=== PATIENT | female | born 1995 | race American Indian/Alaskan Native ===

== ENCOUNTER 2017-06-30 13:05 | Emergency (ER) | payer MEDICAID, OTHER ==
[2017-06-30 14:27] LABS: Urine Drugs of Abuse Note Disclamer
[2017-06-30 14:33] LABS: Hematocrit 40.3 % (30.3-42.9); Hemoglobin 13.6 gm/dl (10.1-14.3); Mean Corpuscular HGB Conc 34 % (30-34); Mean Corpuscular Hemoglobin 29 pg (28-32); Mean Corpuscular Volume 87 fl (79-97); Platelet Count 267 K/mm3 (140-440); Red Blood Count 4.65 M/mm3 (3.65-5.03); Red Cell Distribution Width 13.4 % (13.2-15.2)
[2017-06-30 14:45] LABS: Bacteria,Urine 1+ /HPF (Negative); Bilirubin,Urine NEG (Negative); Blood,Urine NEG (Negative); Ketones,Urine NEG (Negative); Leukocyte Esterase,Urine TR (Negative); Mucus,Urine FEW /HPF; Nitrite,Urine NEG (Negative); Protein,Urine <15 mg/dL mg/dL (Negative); Urobilinogen,Urine < 2.0 mg/dL (<2.0)
[2017-06-30 14:53] LABS: Anion Gap 18 mmol/L; BUN/Creatinine Ratio 10; Blood Urea Nitrogen 6 mg/dL (7-17); Carbon Dioxide 22 mmol/L (22-30); Chloride 100.3 mmol/L (98-107); Glucose 77 mg/dL (65-100); Potassium 3.7 mmol/L (3.6-5.0); Sodium 137 mmol/L (137-145)
[2017-06-30 15:07] LABS: Basophils % (Manual) 0 % (0.0-1.8); Blastocytes % (Manual) 0 %; Diff Status Complete; RBC Morphology Normal
[2017-06-30] MEDS ORDERED: MILK OF MAGNESIA PO PRN (15:56)
[2017-06-30] MEDS ORDERED: TYLENOL PO PRN (15:56)
[2017-06-30] MEDS ORDERED: ALUM-MAG HYDROX-SIMETH 200-200-20MG/5ML PO PRN (15:56)
--- NOTE | 2017-06-30 15:59 | Emergency Department Report ---
HPI - General Chief Complaint: Psych Time Seen by Provider: 06/30/17 14:25 - HPI HPI: The patient is 22-year-old female presents for evaluation of mental health. The patient reports constant severe sadness and depression for the past one week. The patient also admits to experiencing suicidal ideations. The patient denies fever, headache, unexplained weight loss or weight gain, heat or cold intolerance, skin, hair, or nail changes, neuro deficits, homicidal ideations, or auditory or visual hallucinations. ED Past Medical Hx - Past Medical History Hx Arthritis: Yes - Social History Smoking Status: Never Smoker Substance Use Type: Marijuana - Medications Home Medications: Home Medications Medication Instructions Recorded Confirmed Last Taken Type No Known Home Medications [No 06/30/17 06/30/17 Unknown History Reported Home Medications] ED Review of Systems ROS: Stated complaint: SUICIDAL THOUGHTS Other details as noted in HPI Constitutional: denies: fever ENT: denies: throat or neck pain Respiratory: denies: cough, shortness of breath Cardiovascular: denies: chest pain Endocrine: denies unexplained weight loss or gain Gastrointestinal: denies: abdominal pain, nausea Genitourinary: denies: dysuria Musculoskeletal: denies: leg swelling Skin: denies: rash Neurological: denies: headache Hematological/Lymphatic: denies: easy bleeding or easy bruising Psych: reports SI denies sadness or hopelessness Physical Exam - Physical Exam Vital Signs: Vital Signs 06/30/17 13:49 Temperature 99.3 F Pulse Rate 95 H Respiratory 18 Rate Blood Pressure 141/112 O2 Sat by Pulse 100 Oximetry Physical Exam: General: well-nourished, well-developed, no acute distress Head: Normocephalic, atraumatic Eyes: normal sclera ENT: Mucous membranes are pink and moist Neck: trachea midline, neck supple, No neck stiffness, no cervical adenopathy Respiratory: Breath sounds equal bilaterally, no wheezing, rales, or rhonchi Cardio: S1 and S2 present, no murmurs, rubs, gallops, capillary refill is brisk Abdomen: Normoactive bowel sounds, soft abdomen, no rigidity, no guarding or rebound tenderness Musc: No pitting edema Skin: No rash Neuro: no facial drooping, normal speech Psych: flat affect, patient delusional, poor insight, positive auditory hallucinations ED Course Vital Signs 06/30/17 13:49 Temperature 99.3 F Pulse Rate 95 H Respiratory 18 Rate Blood Pressure 141/112 O2 Sat by Pulse 100 Oximetry ED Medical Decision Making - Lab Data Result diagrams: 06/30/17 14:01 06/30/17 14:01 - Medical Decision Making The patient was seen and examined by myself. The patient is placed on a pvc monitor and continuous pulse ox. On initial evaluation, the patient was found to be in no distress. Labs are obtained. Lab results revealed positive marijuana and phencyclidine screens on UDS, and otherwise are grossly unremarkable. The patient is medically clear. Mental health is consulted. Mental health evaluates the patient and agrees that the patient is at risk of harm to self. A 1013 is completed. The patient will be admitted to a psychiatric facility once bed placement is obtained. Critical care attestation.: If time is entered above; I have spent that time in minutes in the direct care of this critically ill patient, excluding procedure time. ED Disposition Clinical Impression: Suicidal ideations Depression Qualifiers: Depression Type: unspecified Qualified Code(s): F32.9 - Major depressive disorder, single episode, unspecified Disposition: DC/TX-65 PSY HOSP/PSY UNIT Is pt being admited?: No Does the pt Need Aspirin: No Condition: Fair Referrals: SHASHANK GUAMAN MD [Primary Care Provider] - 3-5 Days Time of Disposition: 15:58
--- NOTE | 2017-07-01 14:37 | Consultation ---
History of Present Illness - Reason for Consult Consult date: 07/01/17 Reason for consult: Mental Health Evaluation Requesting physician: MAXWELL JACKSON - Chief Complaint Chief complaint: "I was mad" - History of Present Psychiatric Illness The patient is 22-year-old female presents for evaluation of mental health. Today patient is calm during the assessment. When asked about being suicidal she was evasive during the interview. She did state that she got into an argument with her partner and it got out of control. When she was asked about a plan for suicide, she denies having one. She was again asked about making a statement about being suicidal to anyone and she stated, "Yes." Also she stated , "I wanted to when I made the statement." She denies denies SI now. She denies a mental health dx when asked. She denies HI's and AVH's. She denies sleep disturbance and a poor appetite. She admit to smoking marijuana, but denies using PCP. She denies alcohol consumption (etoh). Medications and Allergies Allergies Allergy/AdvReac Type Severity Reaction Status Date / Time No Known Allergies Allergy Verified 06/30/17 13:57 Home Medications Medication Instructions Recorded Confirmed Last Taken Type No Known Home Medications [No 06/30/17 06/30/17 Unknown History Reported Home Medications] Active Meds: Active Medications Acetaminophen (Tylenol) 650 mg PO Q4HR PRN PRN Reason: Pain MILD(1-3)/Fever >100.5/HANCOCK Last Admin: 06/30/17 18:33 Dose: 650 mg Al Hydrox/Mg Hydrox/Simethicone (Alum-Mag Hydrox-Simeth [phone]/5ml) 30 ml PO Q4HR PRN PRN Reason: Indigestion Magnesium Hydroxide (Milk Of Magnesia) 30 ml PO Q12HR PRN PRN Reason: Constipation Past psychiatric history - Past Medical History Past Medical History: No medical history Past Surgical History: No surgical history - past Psychiatric treatment and history psychiatric treatment history: Denies a psy hx and a a fam psy hx. - Social History Social history: lives with family Mental Status Exam - Vital signs Last Vital Signs Temp 98.3 F 06/30/17 20:22 Pulse 87 06/30/17 20:22 Resp 16 07/01/17 04:08 BP 107/77 06/30/17 20:22 Pulse Ox 100 07/01/17 04:08 - Exam Narrative exam: MSE: Appearance: calm, but evasive Behavior: regular eye contact Speech: regular rate and tone Mood: "okay" Affect: congruent to mood Thought Process: circumstantial Thought Content: denies SI/HI's and AVH's Motor Activity: sitting up in bed Cognition: A/O x3 Insight: variable Judgment: variable Results Result Diagrams: 06/30/17 14:01 06/30/17 14:01 Abnormal lab results 06/30/17 06/30/17 Range/Units 14:01 14:01 Eosinophils % (Manual) 7.0 H (0.0-4.3) % Eosinophils # (Manual) 0.6 H (0.0-0.4) K/mm3 BUN 6 L (7-17) mg/dL Creatinine 0.6 L (0.7-1.2) mg/dL All other labs normal. Assessment and Plan Assessment and plan: Impression: Unspecified Mood DO. Substance Use DO (marijuana/PCP). Today patient is calm and cooperative during the assessment. DDx: Substance Induced Mood DO Recommendation/Plan: Continue 1013 with placement to [facility] today.
[2017-07-01 16:43] VITALS: BP 112/56
== END 2017-07-01 15:10 ==
LOC: ED 13:05 → EEVIPCON 13:05 → ED 07-01 15:10
DX: R45.851 Suicidal ideations (principal); F32.9 Major depressive disorder, single episode, unspecified; M19.90 Unspecified osteoarthritis, unspecified site; F12.10 Cannabis abuse, uncomplicated
CPT/HCPCS: 36415; 80048; 80307; 81001; 84703; 85007; 85025; 99285; G0480; 80320

== ENCOUNTER 2017-07-19 11:42 | Emergency (ER) | payer OTHER ==
[2017-07-19 12:02] VITALS: BP 110/70
[2017-07-19 14:43] LABS: Bacteria,Urine 1+ /HPF (Negative); Bilirubin,Urine NEG (Negative); Blood,Urine NEG (Negative); Ketones,Urine NEG (Negative); Leukocyte Esterase,Urine TR (Negative); Mucus,Urine FEW /HPF; Nitrite,Urine NEG (Negative); Protein,Urine <15 mg/dL mg/dL (Negative); Urobilinogen,Urine < 2.0 mg/dL (<2.0)
--- NOTE | 2017-07-19 15:06 | Emergency Department Report ---
ED Dysuria HPI - HPI Chief Complaint: Urogenital-Female Stated Complaint: WANTS TO BE CHECKED FOR STD'S Time Seen by Provider: 07/19/17 12:10 Duration: NO S/S Severity: Mild Symptoms: Dysuria: No, Frequency: No, Suprapubic Pain: No, Flank Pain: No, Fever : No, Hematuria: No, Abdominal Pain: No, Previous UTI's: No ED Review of Systems ROS: Stated complaint: WANTS TO BE CHECKED FOR STD'S Other details as noted in HPI Comment: NO S/S ED Past Medical Hx - Past Medical History Hx Arthritis: Yes - Social History Smoking Status: Never Smoker Substance Use Type: None - Medications Home Medications: Home Medications Medication Instructions Recorded Confirmed Last Taken Type No Known Home Medications [No 06/30/17 06/30/17 Unknown History Reported Home Medications] Dysuria Exam - Exam General: Vital signs noted. No distress. Alert and acting appropriately. Exam: Yes Moist Mucous Membranes, No CVA Tenderness, No Abdominal Tenderness, No Rigidity or Guarding Labs: Lab Results 07/19/17 Range/Units 14:20 Urine Color Yellow (Yellow) Urine Turbidity Clear (Clear) Urine pH 6.0 (5.0-7.0) Ur Specific [place] 1.021 (1.003-1.030) Urine Protein <15 mg/dl (Negative) mg/dL Urine Glucose (UA) Neg (Negative) mg/dL Urine Ketones Neg (Negative) mg/dL Urine Blood Neg (Negative) Urine Nitrite Neg (Negative) Urine Bilirubin Neg (Negative) Urine Urobilinogen < 2.0 (<2.0) mg/dL Ur Leukocyte Esterase Tr (Negative) Urine WBC (Auto) 2.0 (0.0-6.0) /HPF Urine RBC (Auto) 2.0 (0.0-6.0) /HPF U Epithel Cells (Auto) 1.0 (0-13.0) /HPF Urine Bacteria (Auto) 1+ (Negative) /HPF Urine Mucus Few /HPF Urine HCG, Qual Negative (Negative) ED Course Vital Signs 07/19/17 11:59 Temperature 98.4 F Pulse Rate 76 Respiratory 20 Rate Blood Pressure 110/70 O2 Sat by Pulse 98 Oximetry - Reevaluation(s) Reevaluation #1: 07/19/17 15:09 FEMALE HAVING SEX W FEMALE WHO ACCUSED HER OF GIVING HER CHLAMYDIA PT NEVER HAD SEX W MALE PT IS HAVING NO S/S GC URINE SENT. UA NOTED PREG NEG DC HOME FU WITH OBGYN ED Medical Decision Making - Medical Decision Making NO S/S - Differential Diagnosis CONCERN FOR STD Critical care attestation.: If time is entered above; I have spent that time in minutes in the direct care of this critically ill patient, excluding procedure time. ED Disposition Clinical Impression: Concern about STD in female without diagnosis Disposition: DC- TO HOME OR SELFCARE Is pt being admited?: No Does the pt Need Aspirin: No Condition: Stable Instructions: Safe Sex (ED) Additional Instructions: NO EVIDENCE OF INFECTION Referrals: PRIMARY CARE, [Primary Care Provider] - 3-5 Days JANNIE DAVID MD [Staff Physician] - 3-5 Days Time of Disposition: 15:05
== END 2017-07-19 15:12 | disposition home or self-care (01) ==
LOC: ED 11:42
DX: Z11.3 Encounter for screening for infections with a predominantly sexual mode of transmission (principal); M19.90 Unspecified osteoarthritis, unspecified site
CPT/HCPCS: 81001; 81025; 99283

== ENCOUNTER 2018-04-13 19:00 | Emergency (ER) | payer OTHER ==
--- NOTE | 2018-04-13 20:27 | Emergency Department Report ---
ED Psych HPI - General Chief Complaint: Psych Stated Complaint: MH Time Seen by Provider: 04/13/18 19:45 Source: EMS Mode of arrival: Ambulatory - History of Present Illness Initial Comments: Ms. Duenas is a 23 yo female with hx of asthma and Bipolar affective disorder who had feelings of depression today. Her 18 year old sister called 911 because she was concered about her sister's depression. EMS informed me that the patient told them that she ingested Zoloft and attempted to harm himself. She vehemently denies this accusation. Our EMS crew spoke with the ED physician in the ER medical services assistant direction. The physician requested the EMS crew bring her against her will. Mother is at the bedside. She believes the patient. She felt that the situation was a misunderstanding. Mother feels that patient is not at risk for self-harm. She has not harmed herself in the past. She has not had a previous suicide attempt. Mother states that patient told her of a traumatic personal event recently. Mother has been supportive. Mother believes that the patient did not make a statement that she wanted to hurt herself. MD Complaint: feels depressed -: Gradual, days(s) (4) Associated Psychiatric Symptoms: depression History of same: Yes Quality: constant Context: not taking psychiatric, significant life stressor - Related Data Home Medications Medication Instructions Recorded Confirmed Last Taken No Known Home Medications [No 06/30/17 06/30/17 Unknown Reported Home Medications] Allergies Allergy/AdvReac Type Severity Reaction Status Date / Time No Known Allergies Allergy Verified 06/30/17 13:57 ED Review of Systems ROS: Stated complaint: MH Other details as noted in HPI Comment: All other systems reviewed and negative Constitutional: denies: fever, malaise Respiratory: denies: cough Cardiovascular: denies: chest pain ED Past Medical Hx - Past Medical History Previous Medical History?: Yes Hx Arthritis: Yes Hx Psychiatric Treatment: Yes (Bipolar depression. No meds. Previous admission to [facility]) Hx Asthma: Yes - Surgical History Past Surgical History?: No - Social History Smoking Status: Never Smoker Substance Use Type: Marijuana - Medications Home Medications: Home Medications Medication Instructions Recorded Confirmed Last Taken Type No Known Home Medications [No 06/30/17 06/30/17 Unknown History Reported Home Medications] ED Physical Exam - General Limitations: No Limitations General appearance: alert, in no apparent distress - Head Head exam: Present: atraumatic, normocephalic - Eye Eye exam: Present: normal appearance - ENT ENT exam: Present: mucous membranes moist - Neck Neck exam: Present: normal inspection. Absent: tenderness, meningismus - Respiratory Respiratory exam: Present: normal lung sounds bilaterally. Absent: respiratory distress, wheezes, rales, rhonchi - Cardiovascular Cardiovascular Exam: Present: regular rate, normal rhythm. Absent: systolic murmur, diastolic murmur, rubs, gallop - GI/Abdominal GI/Abdominal exam: Present: soft, normal bowel sounds. Absent: distended, tenderness, guarding, rebound - Extremities Exam Extremities exam: Present: normal inspection - Back Exam Back exam: Present: normal inspection - Neurological Exam Neurological exam: Present: alert, oriented X3 - Psychiatric Psychiatric exam: Present: normal affect, normal mood. Absent: homicidal ideation, suicidal ideation - Skin Skin exam: Present: warm, dry, intact, normal color. Absent: rash ED Course Vital Signs 04/13/18 19:45 Temperature 98.7 F Pulse Rate 95 H Respiratory 18 Rate Blood Pressure 152/83 O2 Sat by Pulse 99 Oximetry ED Medical Decision Making - Medical Decision Making Ms. Duenas is 23 yo female with previous hx of depression, bipolar. I reviewed previous psychiatric evaluation by Dr. Caballero when patient was on 1013 on previous ED encounter for suicidal ideation. She was hospitalized at [facility]. Patient was given referral but have not followed up. Patient and mother feel that Pat will be safe at home. She denies SI HI. I have provided referral for mental health evaluation. I explained that patient must be evaluated by a physician in a case of depression and mental illness. Patient and mother were frustrated that patient was brought to ED against her will. Critical care attestation.: If time is entered above; I have spent that time in minutes in the direct care of this critically ill patient, excluding procedure time. ED Disposition Clinical Impression: Bipolar affective disorder Disposition: DC-01 TO HOME OR SELFCARE Is pt being admited?: No Does the pt Need Aspirin: No Condition: Stable Instructions: Depression (ED) [facility] Time of Disposition: 20:33
[2018-04-13 20:43] VITALS: BP 138/66
== END 2018-04-13 20:43 | disposition home or self-care (01) ==
LOC: ED 19:00
DX: F31.9 Bipolar disorder, unspecified (principal); J45.909 Unspecified asthma, uncomplicated; M19.90 Unspecified osteoarthritis, unspecified site
CPT/HCPCS: 99283

== ENCOUNTER 2018-09-26 15:40 | Emergency (ER) | payer OTHER ==
[2018-09-26 16:10] VITALS: BP 115/72
--- NOTE | 2018-09-26 16:13 | Emergency Department Report ---
Blank Doc - Documentation Documentation: 23 y o female presents to ED stating syncopal episode last night while cooking, she does not remember what happened, she was found on the floor by her girlfriend who is here with her. she states that she hit her head on the floor. Gf states she noticed blood from pt's ears She denies cp,sob,dizziness LMP: never This initial assessment diagnostic orders/clinical plan/treatment (s) is/Are subject change based on patient's health status, clinical progression and re-assessment by fellow clinical providers in the ED. Further treatment and work-up at subsequent clinical providers discretion. Patient/guardians urged not to elope from their condition may be serious if not clinically assessed and managed. Initial order include: labs ACC assessment
[2018-09-26 16:33] LABS: Basophils # (Auto) 0.1 K/mm3 (0.0-0.1); Basophils % (Auto) 0.8 % (0.0-1.8); Eosinophils # (Auto) 0.4 K/mm3 (0.0-0.4); Eosinophils % (Auto) 4.6 % (0.0-4.3); Hematocrit 38.8 % (30.3-42.9); Hemoglobin 13.1 gm/dl (10.1-14.3); Lymphocytes # (Auto) 2.8 K/mm3 (1.2-5.4); Mean Corpuscular HGB Conc 34 % (30-34); Mean Corpuscular Volume 87 fl (79-97); Monocytes # (Auto) 0.6 K/mm3 (0.0-0.8); Monocytes % (Auto) 7.5 % (0.0-7.3); Platelet Count 260 K/mm3 (140-440); Red Blood Count 4.46 M/mm3 (3.65-5.03); Red Cell Distribution Width 13.3 % (13.2-15.2)
[2018-09-26 16:44] LABS: BUN/Creatinine Ratio 13; Blood Urea Nitrogen 9 mg/dL (7-17); Calcium 9.2 mg/dL (8.4-10.2); Hemolysis Index 13
--- NOTE | 2018-09-26 17:39 | Emergency Department Report ---
HPI - General Chief Complaint: Syncope Time Seen by Provider: 09/26/18 16:07 - HPI HPI: 23-year-old AA female presents to the emergency department with complaint of right shoulder pain and a headache, as well as some tongue pain, after passing out at home yesterday afternoon while cooking. The patient's significant other found her on the ground with some convulsions or seizure-like activity and she was foaming at the mouth. She took a few minutes to return back to normal. The patient is awake and alert and says that she does not remember anything regarding this episode of passing out. She denies any past medical history. She has never had any previous seizures or episodes of passing out prior to this. No recent travel or sick contacts at home. She denies any tobacco or illicit drug use or abuse. She has not taken anything for her symptoms prior to presentation. ED Past Medical Hx - Past Medical History Previous Medical History?: Yes Hx Arthritis: Yes Hx Psychiatric Treatment: Yes (Bipolar depression. No meds. Previous admission to [facility]) Hx Asthma: Yes - Surgical History Past Surgical History?: No - Social History Smoking Status: Never Smoker Substance Use Type: Marijuana - Medications Home Medications: Home Medications Medication Instructions Recorded Confirmed Last Taken Type RX: Ibuprofen 600 mg PO Q8H PRN #20 tablet 09/26/18 Unknown Rx ED Review of Systems ROS: Stated complaint: PASSED OUT/MOUTH/BODY PAIN Other details as noted in HPI Comment: All other systems reviewed and negative Constitutional: denies: chills, fever Eyes: denies: eye pain, vision change ENT: denies: ear pain, throat pain Respiratory: denies: cough, shortness of breath Cardiovascular: syncope. denies: chest pain, palpitations Gastrointestinal: denies: nausea, vomiting Genitourinary: denies: dysuria, discharge Musculoskeletal: arthralgia. denies: back pain Skin: denies: rash, lesions Neurological: headache. denies: weakness, numbness, paresthesias Physical Exam - Physical Exam Vital Signs: Vital Signs 09/26/18 16:04 Temperature 98.2 F Pulse Rate 94 H Respiratory 18 Rate Blood Pressure 115/72 O2 Sat by Pulse 98 Oximetry Physical Exam: GENERAL: The patient is well-developed well-nourished. HEENT: Normocephalic. Atraumatic. Patient has moist mucous membranes. Oropharynx is clear. No drooling or trismus. The patient has some small abrasions seen to the right side of the tongue consistent with her biting her tongue. EYES: Extraocular motions are intact. Pupils are equal and reactive to light bilaterally. No nystagmus. NECK: Supple. Trachea is midline. CHEST/LUNGS: Clear to auscultation. There is no respiratory distress noted. HEART/CARDIOVASCULAR: Regular. There is no tachycardia. There is no obvious murmur. ABDOMEN: Abdomen is soft, nontender. Patient has normal bowel sounds. There is no abdominal distention. SKIN: Skin is warm and dry. NEURO: The patient is awake, alert, and oriented. The patient is cooperative. The patient has no focal neurologic deficits. The patient has normal speech. Cranial nerves II through XII grossly intact. MUSCULOSKELETAL: There is some tenderness to palpation to the right shoulder but no obvious deformity. Radial pulse +2 over 4 and capillary refill less than 2 seconds to the affected right upper extremity. ED Course Vital Signs 09/26/18 16:04 Temperature 98.2 F Pulse Rate 94 H Respiratory 18 Rate Blood Pressure 115/72 O2 Sat by Pulse 98 Oximetry ED Medical Decision Making - Lab Data Result diagrams: 09/26/18 16:18 09/26/18 16:18 - EKG Data -: EKG Interpreted by Me EKG shows normal: sinus rhythm, axis, intervals, QRS complexes, ST-T waves Rate: normal - EKG Data When compared to previous EKG there are: previous EKG unavailable Interpretation: normal EKG - Radiology Data Radiology results: report reviewed, image reviewed interpreted by me: X-ray of the right shoulder does not show any fracture, dislocation or any acute process. PROCEDURE: CT HEAD/BRAIN WO CON TECHNIQUE: Computerized tomography of the head was performed without contrast benjamin ivan. HISTORY: Syncope COMPARISONS: None . FINDINGS: Skull and scalp: Normal . Paranasal sinuses: Mucosal thickening in the maxillary and ethmoid sinuses is noted bilaterally. . Ventricles and subarachnoid spaces: Normal . Cerebrum: No evidence of hemorrhage, acute infarction or mass . Cerebellum and brainstem: No evidence of hemorrhage, acute infarction or mass . Vasculature: Normal . Other: None . ASPECTS: 10 IMPRESSION: No acute intracranial abnormality. Chronic sinusitis in the maxillary and ethmoid sinuses This document is electronically signed by Iona Payen MD., September 26 2018 06:04:02 PM ET Transcribed By: [facility] Dictated By: IONA PAYNE MD Electronically Authenticated By: IONA PAYNE MD Signed Date/Time: 09/26/18 180 - Medical Decision Making Patient presents to the emergency department with a syncopal episode yesterday with some seizure-like activity when it occurred. Now she still has a mild headache and some right shoulder pain. She is awake and alert and does not appear in any acute distress. She has no focal, motor or sensory deficits and her cranial nerves are intact. A CT scan of the head did not show any bleed, shift, mass, ischemia, or any other acute process. Patient's labs were unremarkable including CBC, BMP, LDH. X-ray of the right shoulder does not show any fracture, dislocation or any acute process. Patient was reevaluated multiple times of hours and has remained awake, alert and stable. She appears safe for discharge home at this time. Given that the patient had some witnessed seizure-like activity and what sounds like a short postictal period, it may have been that the patient had a seizure as the etiology of the syncope. It could also have been orthostatic hypotension, vasovagal. An EKG was done that does not show any ST elevation MN, dysrhythmia or ischemia. The patient has been given a referral for primary care, neurology and an orthopedist. She will return to the ER with any worsening of her symptoms or any acute distress. - Differential Diagnosis seizure, orthostatic hypotension, vasovagal, dysrhythmia, migraine Critical Care Time: No Critical care attestation.: If time is entered above; I have spent that time in minutes in the direct care of this critically ill patient, excluding procedure time. ED Disposition Clinical Impression: Seizure-like activity Syncope Qualifiers: Syncope type: unspecified Qualified Code(s): R55 - Syncope and collapse Right shoulder pain Qualifiers: Chronicity: acute Qualified Code(s): M25.511 - Pain in right shoulder Disposition: DC-01 TO HOME OR SELFCARE Is pt being admited?: No Condition: Stable Instructions: Syncope (ED) Additional Instructions: Please follow up with a primary care physician in the next few days. I'm giving you a referral for a local neurologist, Dr. Garcia, to follow up regarding the observed seizure-like activity. I am also giving you a referral for a local orthopedist, Dr. Peters, to follow up regarding her right shoulder pain. Return to the emergency Department with any worsening of your symptoms or any acute distress. Prescriptions: RX: Ibuprofen 600 mg PO Q8H PRN #20 tablet PRN Reason: Pain , Severe (7-10) Referrals: ANDREW PETERS MD [Staff Physician] - 3-5 Days KEVIN GARCIA MD [Staff Physician] - 3-5 Days JEANA FAY MD [Staff Physician] - 3-5 Days [facility] [Outside] - 3-5 Days Forms: Work/School Release Form(ED) Time of Disposition: 18:26
--- NOTE | 2018-09-26 18:06 | Cat Scan Report ---
PROCEDURE: CT HEAD/BRAIN WO CON TECHNIQUE: Computerized tomography of the head was performed without contrast material. HISTORY: Syncope COMPARISONS: None . FINDINGS: Skull and scalp: Normal . Paranasal sinuses: Mucosal thickening in the maxillary and ethmoid sinuses is noted bilaterally. . Ventricles and subarachnoid spaces: Normal . Cerebrum: No evidence of hemorrhage, acute infarction or mass . Cerebellum and brainstem: No evidence of hemorrhage, acute infarction or mass . Vasculature: Normal . Other: None . ASPECTS: 10 IMPRESSION: No acute intracranial abnormality. Chronic sinusitis in the maxillary and ethmoid sinuses This document is electronically signed by Iona Payne MD., September 26 2018 06:04:02 PM ET
--- NOTE | 2018-09-26 19:03 | XRay Report ---
PROCEDURE: XR SHOULDER 2+V RT HISTORY: right shoulder pain FINDINGS: AP views of the right shoulder were acquired in internal and external rotation as well as s capular Y view. These images demonstrate no fracture or malalignment of the right shoulder. The glenohumeral and acro miohumeral joints are normally located. IMPRESSION: No fracture is seen in the right shoulder This document is electronically signed by Huan Childers MD., September 26 2018 06:43:55 PM ET
== END 2018-09-26 18:37 | disposition home or self-care (01) ==
LOC: ED 15:40
DX: M25.511 Pain in right shoulder (principal); R55 Syncope and collapse; R51 Headache; M19.90 Unspecified osteoarthritis, unspecified site; R56.9 Unspecified convulsions; F31.9 Bipolar disorder, unspecified; F12.10 Cannabis abuse, uncomplicated
CPT/HCPCS: 36415; 70450; 80048; 83615; 84703; 85025; 93005; 93010

== ENCOUNTER 2019-01-11 18:58 | Emergency (ER) | payer OTHER ==
[2019-01-11 19:17] VITALS: BP 108/64
--- NOTE | 2019-01-11 19:43 | Event Note ---
ED Screening Note ED Screening Note: 24y/o female comes in left hip pain. Started having after a fall in November. This initial assessment/diagnostic orders/clinical plan/treatment(s) is/are subject to change based on patients health status, clinical progression and re- assessment by fellow clinical providers in the ED. Further treatment and workup at subsequent clinical providers discretion. Patient/guardian urged not to elope from the ED as their condition may be serious if not clinically assessed and managed. Initial orders include: <FLO DUBON - Last Filed: 01/11/19 19:41> ED Screening Note: A physician and/or other qualified medical personnel has recommended that the patient receive further examination and/or treatment beyond their Medical Screening Exam. The risks and benefits were explained. The patient was informed of their right to emergency care. Patient left before final disposition of their medical condition. This note has been generated by me, Dr. Oanh Collins III, MD, the Supervisor [employer] for the emergency department. I have not seen this patient personally. <OANH COLLINS - Last Filed: 01/22/19 08:20>
--- NOTE | 2019-01-11 20:41 | XRay Report ---
PROCEDURE: XR HIP 2-3V LT TECHNIQUE: 2 radiographs of the left hip obtained. HISTORY: hip pain after a fall COMPARISONS: None FINDINGS: No acute fracture or dislocation. Femoral head is aligned within the acetabular fossa. IMPRESSION: No acute fracture or dislocation.. This document is electronically signed by Margarito Bentley MD., January 11 2019 08:38:51 PM ET
== END 2019-01-11 20:43 | disposition left against medical advice (07) ==
LOC: ED 18:58
DX: M25.552 Pain in left hip (principal); Z53.21 Procedure and treatment not carried out due to patient leaving prior to being seen by health care provider

== ENCOUNTER 2019-01-27 16:43 | Emergency (ER) | payer OTHER ==
--- NOTE | 2019-01-27 16:58 | Emergency Department Report ---
Blank Doc - Documentation Documentation: This is a 24-year-old female that presents with taking 3 doses of methylphenid ate 10mg. Patient stated she was made and punched the wall and taken 3 pills to calm down. Patient denies trying to harm self or others. Denies any SI/HI. Stated just needs help with anger issues. This initial assessment/diagnostic orders/clinical plan/treatment(s) is/are subject to change based on patient's health status, clinical progression and re- assessment by fellow clinical providers in the ED. Further treatment and workup at subsequent clinical providers discretion. Patient/guardians urged not to elope from the ED as their condition may be serious if not clinically assessed and managed. Initial orders include: 1- Patient sent to MAIN ED for further evaluation and treatment 2- biomedical engineering aide was notified to have patient be brought back [facility] for further eval by psych. 3- RN was notified to keep patient as close range and observation until room available 4- Xrays
[2019-01-27 17:01] VITALS: BP 114/70
[2019-01-27 17:38] LABS: Basophils # (Auto) 0.1 K/mm3 (0.0-0.1); Basophils % (Auto) 0.8 % (0.0-1.8); Eosinophils # (Auto) 0.3 K/mm3 (0.0-0.4); Eosinophils % (Auto) 4.6 % (0.0-4.3); Hematocrit 36.7 % (30.3-42.9); Hemoglobin 12.4 gm/dl (10.1-14.3); Lymphocytes # (Auto) 2.5 K/mm3 (1.2-5.4); Lymphocytes % (Auto) 32.7 % (13.4-35.0); Mean Corpuscular HGB Conc 34 % (30-34); Mean Corpuscular Volume 88 fl (79-97); Monocytes # (Auto) 0.6 K/mm3 (0.0-0.8); Monocytes % (Auto) 8.5 % (0.0-7.3); Platelet Count 271 K/mm3 (140-440); Red Blood Count 4.19 M/mm3 (3.65-5.03); Red Cell Distribution Width 13.4 % (13.2-15.2)
[2019-01-27 17:59] LABS: BUN/Creatinine Ratio 16; Blood Urea Nitrogen 11 mg/dL (7-17); Calcium 8.8 mg/dL (8.4-10.2); Hemolysis Index 5
--- NOTE | 2019-01-27 18:12 | XRay Report ---
LEFT HAND 3 VIEWS INDICATION / CLINICAL INFORMATION: Left hand pain. COMPARISON: None available. FINDINGS: BONES / JOINT(S): The joint spaces are well-maintained. There is no evidence of fracture, dislocation or destructive lesion. SOFT TISSUES: No significant abnormality. ADDITIONAL FINDINGS: None. IMPRESSION: Negative study. Signer Name: Marty Lisa MD Signed: 01/27/2019 5:08 PM Workstation Name: [id number]
[2019-01-27 19:23] LABS: Bacteria,Urine 1+ /HPF (Negative); Bilirubin,Urine NEG (Negative); Blood,Urine NEG (Negative); Color,Urine Yellow (Yellow); Mucus,Urine 2+ /HPF; Protein,Urine <15 mg/dL mg/dL (Negative)
[2019-01-27 19:29] LABS: Amphetamine Screen,Urine PRESUMPTIVE NEGATIVE; Benzodiazepines Screen,Urine PRESUMPTIVE NEGATIVE; Cocaine Screen,Urine PRESUMPTIVE NEGATIVE; Methadone Screen,Urine PRESUMPTIVE NEGATIVE; Opiate Screen,Urine PRESUMPTIVE NEGATIVE
--- NOTE | 2019-01-27 19:33 | Emergency Department Report ---
HPI - General Chief Complaint: Psych Time Seen by Provider: 01/27/19 16:57 - HPI HPI: i was told by nurses that patient walked out with mother, before i had a chance to see her. ED Past Medical Hx - Past Medical History Hx Arthritis: Yes Hx Psychiatric Treatment: Yes (Bipolar depression. No meds. Previous admission to [facility]) Hx Asthma: Yes - Surgical History Past Surgical History?: No - Social History Smoking Status: Never Smoker Substance Use Type: Alcohol, Marijuana - Medications Home Medications: Home Medications Medication Instructions Recorded Confirmed Last Taken Type Ibuprofen 600 mg PO Q8H PRN #20 tablet 09/26/18 Unknown Rx ED Review of Systems ROS: Stated complaint: SI Other details as noted in HPI Physical Exam - Physical Exam Vital Signs: Vital Signs 01/27/19 16:58 Temperature 98.5 F Pulse Rate 80 Respiratory 16 Rate Blood Pressure 114/70 O2 Sat by Pulse 100 Oximetry ED Course Vital Signs 01/27/19 16:58 Temperature 98.5 F Pulse Rate 80 Respiratory 16 Rate Blood Pressure 114/70 O2 Sat by Pulse 100 Oximetry - Reevaluation(s) Reevaluation #1: 01/27/19 i was told by nurses that patient left er with mother ED Medical Decision Making - Lab Data Result diagrams: 01/27/19 17:14 01/27/19 17:14 Critical care attestation.: If time is entered above; I have spent that time in minutes in the direct care of this critically ill patient, excluding procedure time. ED Disposition Clinical Impression: Anger reaction Disposition: DC-07 LEFT AGAINST MED ADVICE Is pt being admited?: No Does the pt Need Aspirin: No Condition: Stable
[2019-01-27 19:42] LABS: Cannabinoid Screen,Urine PRESUMPTIVE POSITIVE
== END 2019-01-27 19:11 | disposition left against medical advice (07) ==
LOC: ED 16:43 → EEVIPCON 16:43 → ED 19:11
DX: R45.4 Irritability and anger (principal); M19.90 Unspecified osteoarthritis, unspecified site; F31.9 Bipolar disorder, unspecified; F12.90 Cannabis use, unspecified, uncomplicated; Z79.899 Other long term (current) drug therapy; Z53.21 Procedure and treatment not carried out due to patient leaving prior to being seen by health care provider
CPT/HCPCS: 36415; 73130; 80048; 80307; 81001; 85025; G0480; 80320

== ENCOUNTER 2022-04-26 20:14 | Emergency (ER) | payer OTHER ==
[2022-04-26 20:34] VITALS: BP 134/80
== END 2022-04-27 08:24 | disposition left against medical advice (07) ==
LOC: ED 20:14
DX: R56.9 Unspecified convulsions (principal); Z53.21 Procedure and treatment not carried out due to patient leaving prior to being seen by health care provider